=== PATIENT | female | born 1990 | race African-American/Black ===

== ENCOUNTER 2019-07-10 14:18 | Emergency (ER) | payer MEDICAID ==
[~2019-07-10] VITALS: Ht 172.7 cm; Wt 90.5 kg
[2019-07-10 14:20] VITALS: BP 148/103
[2019-07-10] MEDS ORDERED: FLUORESCEIN/BENOXINATE 5 ML DROPS OP ONE (15:00)
--- NOTE | 2019-07-10 15:09 | NUR ---
Received report from IZZY Daniel. All questions answered. Assuming care of pt at this time.
--- NOTE | 2019-07-10 15:10 | NUR ---
REPORT GIVEN TO IZZY URRUTIA.
--- NOTE | 2019-07-10 15:41 | NUR ---
Patient given discharge instructions and they have confirmed that they understand the instructions. Patient ambulatory with steady gait. Pt left with d/c paperwork, Rx, and all personal belongings.
[2019-07-10] MEDS ORDERED: NALOXONE 1 MG/ML, 2ML ONE (18:13)
== END 2019-07-10 15:43 | disposition home or self-care (01) ==
LOC: ED 15:00
DX: H10.021 Other mucopurulent conjunctivitis, right eye (principal)
CPT/HCPCS: 99283